=== PATIENT | male | born 2000 | race Two or more races ===

== ENCOUNTER 2023-07-29 10:49 | Emergency (ER) | payer SELFPAY ==
[2023-07-29 10:57] VITALS: BMI 19.1
[2023-07-29] MEDS ORDERED: ACETAMINOPHEN 500 MG TABLET (FP) PO ONE (12:27)
[2023-07-29] MEDS ORDERED: diphenhydrAMINE HCL 50 MG CAPSULE PO ONE (12:36)
[2023-07-29] MEDS ORDERED: diphenhydrAMINE HCL 25 MG CAPSULE (FP) PO ONE (12:43)
[2023-07-29] MEDS ORDERED: ACETAMINOPHEN 500 MG TABLET (FP) ONE (12:44)
[2023-07-29 13:15] VITALS: BP 108/54; PULSE 82; RESP 16; TEMP 98.4
== END 2023-07-29 13:24 | disposition home or self-care (01) ==
LOC: JER 10:49 → JERFT 10:49
DX: R21 Rash and other nonspecific skin eruption (principal); R50.9 Fever, unspecified; M79.10 Myalgia, unspecified site; L29.9 Pruritus, unspecified
CPT/HCPCS: 99283-25

== ENCOUNTER 2023-07-31 11:26 | Emergency (ER) | payer SELFPAY ==
[2023-07-31 11:34] VITALS: BP 131/85; PULSE 95; RESP 20; TEMP 99.1; BMI 25.1
== END 2023-07-31 12:47 | disposition home or self-care (01) ==
LOC: JERFT 11:26
DX: R21 Rash and other nonspecific skin eruption (principal); R51.9 Headache, unspecified; H57.89 Other specified disorders of eye and adnexa; L29.9 Pruritus, unspecified; R50.9 Fever, unspecified; B01.9 Varicella without complication
CPT/HCPCS: 99282-25

== ENCOUNTER 2024-09-09 11:14 | Emergency (ER) | payer OTHER ==
[2024-09-09 11:22] VITALS: BP 100/52; PULSE 84; RESP 20; TEMP 98.4; BMI 26.4
[2024-09-09] MEDS ORDERED: LIDOCAINE 4% PATCH TP ONE (12:06)
[2024-09-09] MEDS ORDERED: KETOROLAC TROMETHAMINE 30 MG/1 ML VIAL ONE (12:06)
[2024-09-09] MEDS: LIDOCAINE 4% PATCH TP ONE (12:14)
[2024-09-09] MEDS: KETOROLAC TROMETHAMINE 30 MG/1 ML VIAL IM ONE (12:14)
[2024-09-09 14:45] LABS: HIV INTERPRETATION NEGATIVE (NEGATIVE)
[2024-09-09] MEDS ORDERED: LIDOCAINE PATCH REMOVAL MC SCH (22:00)
== END 2024-09-09 14:04 | disposition home or self-care (01) ==
LOC: JERFT 11:14
PROC: 3E0133Z Introduction of Anti-inflammatory into Subcutaneous Tissue, Percutaneous Approach (ICD-10-PCS; principal; 2024-09-09)
DX: M54.50 Low back pain, unspecified (principal); W19.XXXA Unspecified fall, initial encounter; Y93.66 Activity, soccer
CPT/HCPCS: 36415; 72100-TC-FY; 86803; 87389; 96372; 99284-25